=== PATIENT | female | born 1980 | race Two or more races ===

== ENCOUNTER 2023-10-21 14:42 | Outpatient (AMB) | payer MEDICAID, SELFPAY ==
--- NOTE | 2023-10-21 14:48 | MHC.OFFVIS ---
Vital Signs 10/21/23 14:49 Height 5 ft 3 in Weight 148 lb 2 oz BMI 26.2 BP 132/78 Blood Pressure Location Rt brachial Position Sitting Respiration 16 Pulse 72 Pulse Source Pulse Oximeter Pulse Oximetry (%) 95 Oxygen Delivery Method Room Air Intake Visit Reasons: ENP: H/a above eye/speech imp/dysarthria-LVM w/add Intake Note: Pt presents for new pt evaluation for headaches. Pt reports over the last 4 months she has been having spikes in her blood pressure that have resulted in speech disturbance. Personnel Representative Required: Yes Personnel Representative Name: Vanessa Sales CMA Allergies lisinopril Allergy (Mild, Verified 10/21/23 16:02) Rash HPI Comments Details: 43y/o female comes for evaluation of headaches associated with eye pain , speech disturbances. She started having headaches about 6 mths ago( May 2023) About 6 years ago - she developed preeclampsia and her BP was monitored . 6 mths ago she started noticing headaches vision change speech issues which progressively worsened she was taken to ER Her BP was [id number]/100 s at home and in ER she was given a medication for BP and had EKG labs and CXR. Her headaches and her other neurological symptoms resolve donce her blood pressure was controlled she describes the headaches as frontal, temporal pressure, with nausea, blurry vision, dysarthria,von vu , confusion, chest pain etc. she was seen by archeologist classical and was cleared. she had stress test. [facility] Medical History (Updated 10/21/23 @ 15:17 by Janae Franks MD) Hypersomnia Snoring Worsening headaches Hypertensive crisis Neck pain Preeclampsia HTN (hypertension) Cervical dysplasia Surgical History H/O breast implant Family History Mother HTN (hypertension) Hypercholesteremia Allergic rhinitis Arthritis Father HTN (hypertension) Diabetes Cardiovascular disease Glaucoma Social History Household Members: Children Housing: House Alcohol intake: current Comment: social Patient Tobacco Use Status: Never used Tobacco Physical Exam Vital Signs: Last Vital Signs Pulse 72 10/21/23 14:49 Resp 16 10/21/23 14:49 BP 132/78 10/21/23 14:49 Pulse Ox 95 10/21/23 14:49 Oxygen Delivery Method Room Air 10/21/23 14:49 BMI result Body Mass Index 26.2 Const General: cooperative and healthy appearing Nutritional Appearance: average body habitus Orientation/consciousness: patient oriented x3 HEENT Head: Yes normal to inspection Eyes Pupils: Equal, round and reactive pupils present Neuro General: patient oriented x3, gait normal, tone normal and moves all extremities Cranial nerves: Yes Facial sensation intact/muscles of mastication intact, Yes Equal, round and reactive pupils present, Yes Bilaterally intact EOM present, Yes Nystagmus not present, Yes Normal facial strength present, Yes Midline tongue present and Yes Symmetric palate elevation present Cognition (Neuro): normal cognition Gait exam (Neuro): Normal gait present Motor exam (neuro): 5/5 motor strength present throughout and Normal motor muscle tone present throughout Deep tendon reflexes (DTR's): Right triceps reflex intensity grade: 1+, Left triceps reflex intensity grade: 1+, Rt Biceps (C5, C6): 1+, Left biceps reflex intensity grade: 1+, Right brachioradialis reflex intensity grade: 1+, Left brachioradialis reflex intensity grade: 1+, Right patellar reflex intensity grade: 1+ and Left patellar reflex intensity grade: 1+ Coordination: [id number] test normal Assessment & Plan Assessment & Plan (1) Worsening headaches: Comment: associated with nausea blurry vision speech disturbances Code(s): R51.9 - Headache, unspecified Category: Medical (2) Neck pain: Code(s): M54.2 - Cervicalgia Category: Medical (3) Snoring: Code(s): R06.83 - Snoring Category: Medical (4) Hypersomnia: Code(s): G47.10 - Hypersomnia, unspecified Category: Medical Plan Her headaches with nausea, vision changes and speech disturbance was likely related to her HTN crisis MRI brain Home sleep test to r/o sleep apnea C spine xr to evaluate her neck pain Orders: Orders RT home sleep study 10/21/23 G47.10 - Hypersomnia, unspecified, R06.83 - Snoring XR cervical spine 2V 10/21/23 M54.2 - Cervicalgia Coding Level of Care Code New Pt Level 4 (25171) Diagnoses Worsening headaches R51.9 Neck pain M54.2 Snoring R06.83 Hypersomnia G47.10
[2023-10-21 14:49] VITALS: BP 132/78; PULSE 72; RESP 16; O2SAT 95; BMI 26.2
== END 2023-10-21 15:29 | disposition home or self-care (01) ==
PROVIDERS: PCP Internal Medicine; Visit Provider Psychiatry & Neurology Neurology
DX: R51.9 Headache, unspecified (principal); M54.2 Cervicalgia; R06.83 Snoring; G47.10 Hypersomnia, unspecified
CPT/HCPCS: 99204

== ENCOUNTER → 2023-10-21 14:42 | Outpatient (BNVA) | payer MEDICAID, SELFPAY | PROVIDERS: PCP Internal Medicine; Visit Provider Psychiatry & Neurology Neurology | DX: R51.9 Headache, unspecified (principal); R06.83 Snoring; G47.10 Hypersomnia, unspecified; M54.2 Cervicalgia | CPT/HCPCS: 99202 ==

== ENCOUNTER → 2024-02-01 14:56 | Outpatient (REF) | payer MEDICAID, SELFPAY | LOC: HO.SL 14:56 | PROVIDERS: PCP Internal Medicine; Visit Provider Psychiatry & Neurology Neurology | DX: R06.83 Snoring (principal); G47.10 Hypersomnia, unspecified | CPT/HCPCS: 95806 ==

== ENCOUNTER → 2024-02-01 15:27 | Outpatient (BNV) | payer MEDICAID, SELFPAY | PROVIDERS: PCP Internal Medicine; Visit Provider Psychiatry & Neurology Neurology | DX: R06.83 Snoring (principal); G47.10 Hypersomnia, unspecified | CPT/HCPCS: 95806 ==